=== PATIENT | male | born 1990 | race Caucasian/White ===

== ENCOUNTER 2025-05-31 19:50 | Emergency (ER) | payer MEDICAID, SELFPAY ==
[2025-05-31] VITALS (20 sets, daily range): BP systolic 138–174; BP diastolic 72–94; PULSE 102–113; TEMP 36.8–38.6; O2SAT 94–100; BMI 40.4
--- NOTE | 2025-05-31 20:35 | XR_ITS ---
The [address] [address] Patient Name: SPEEDY REYNOSO MRN: [id number] date: 1990 Sex: M Assigned Patient Location: ED.MAIN Current Patient Location: Accession/Order Number: [id number] Exam Date: 05/31/2025 21:00 Report Date: 06/01/2025 09:43 At the request of: NICOLASA LUIS Procedure: XR chest 2V PA AND LATERAL CHEST: CLINICAL HISTORY: cough, shortness of breath, fever and chills COMPARISON: 06/02/2006 Minimal linear scarring or atelectasis is seen at the left base. There is no focal parenchymal consolidation, effusion or pneumothorax. The cardiac, hilar and mediastinal silhouettes are within normal limits. There is no vascular congestion. The visualized bony thorax is intact. There is minor endplate spurring. XR/XR chest 2V IMPRESSION: NO ACUTE CARDIOPULMONARY ABNORMALITY. Impression dictated by: Judith Salas M.D. 06/01/2025 9:43 AM Dictation Location: [place] [address] Electronically authenticated by: [id number] Y Date: 06/01/2025 09:43
[2025-05-31 20:50] LABS: Glucose Urine UA NEGATIVE (NEGATIVE)
[2025-05-31 20:55] LABS: SARS-CoV-2 Ag NEGATIVE (NEGATIVE)
[2025-05-31 20:57] LABS: Cast Seen? NONE SEEN #/LPF (NONE SEEN); Crystals Seen? None Seen #/HPF (None Seen)
[2025-05-31 20:58] LABS: Urine Culture Indicated YES-FRMC
[2025-05-31] MEDS: ACETAMINOPHEN 500 MG TABLET 1000 MG PO (21:20)
[2025-05-31] MEDS: IBUPROFEN 400 MG TABLET 800 MG PO (21:20)
--- NOTE | 2025-05-31 21:20 | ED.GENADUL1 ---
Documented by User: MERI Bartlett 05/31/25 22:09 HPI HPI - General Adult General Chief complaint: Fever Stated complaint: SOB, FEVER, CHILLS, COUGHING, CHEST HURTS Time Seen by Provider: 05/31/25 20:24 Source: patient Mode of arrival: walk-in Limitations: no limitations History of Present Illness HPI narrative: Patient is a 34-year-old male that presents to the emergency department with 5 days of fever, chills, shortness of breath, cough, nausea, lack of appetite. He denies any abdominal pain or vomiting. Related Data Previous Rx's ?Medication ?Instructions ?Recorded levofloxacin 500 mg tablet 500 mg PO DAILY 3 days #3 tabs 05/31/25 Allergies Allergy/AdvReac Type Severity Reaction Status Date / Time Penicillins Allergy Hives Verified 05/31/25 20:30 Opioid HPI Opioid Management Most Recent Opioid Data: Last Pain Scale 6 Today, 20:24 Last AUG Pain Assessment Today, 21:20 Review of Systems ROS Status of ROS 10 or more systems reviewed and unremarkable except as noted in history and below PFSH PFSH Social History Little interest or pleasure in doing things: not at all Feeling down, depressed, or hopeless: not at all Exam Narrative Exam Narrative: General: No distress, age-appropriate Skin: Warm, dry, no pallor. No rash. Head: Normocephalic, atraumatic. Neck: Supple, non-tender. Eye: Pupils are equal, round and EOMI. No scleral icterus. Ears, Nose, Mouth, and Throat: TMs clear bilaterally. No nasal mucosal hypertrophy. Oral mucosa is moist, no posterior oropharynx erythema, uvula is mid-line Cardiovascular: Regular Rate and Rhythm without murmur, gallop or rub. Respiratory: No accessory muscle use or respiratory distress. Lungs are clear to auscultation, no wheezing, rales or rhonchi Chest Wall: no tenderness Musculoskeletal: Full ROM of all extremities, no calf or popliteal tenderness GI: Abdomen is soft, obese, non-distended, non tender to palpation. No masses appreciated. No rebound, guarding, or rigidity noted. Neurological: A&O x4. No cranial nerve dysfunction observed. No truncal ataxia. Moves all extremities. Sensation intact. Psychiatric: Cooperative and interactive. Normal mood and affect. Constitutional Vital Signs, click to edit/add: Last Vital Signs Temp 101.5 F H 05/31/25 22:35 Pulse 113 H 05/31/25 20:24 Resp 18 05/31/25 20:24 BP 174/81 H 05/31/25 20:24 Pulse Ox 100 05/31/25 20:24 O2 Del Method Room Air 05/31/25 20:24 Documenting provider has reviewed patient's vital signs: yes Course Vital Signs Vital signs: Vital Signs Temperature 101.1 F H 05/31/25 20:24 Pulse Rate 113 H 05/31/25 20:24 Respiratory Rate 18 05/31/25 20:24 Blood Pressure 174/81 H 05/31/25 20:24 Pulse Oximetry 100 05/31/25 20:24 Oxygen Delivery Method Room Air 05/31/25 20:24 Temperature 101.5 F H 05/31/25 22:35 Pulse Rate 113 H 05/31/25 20:24 Respiratory Rate 18 05/31/25 20:24 Blood Pressure 174/81 H 05/31/25 20:24 Pulse Oximetry 100 05/31/25 20:24 Oxygen Delivery Method Room Air 05/31/25 20:24 Medical Decision Making [facility] Narrative Medical decision making narrative: The patient is a 34-year-old male presenting with a 5-day history of fever, chills, cough, shortness of breath, nausea, lack of appetite, and urinary frequency. On arrival patient is febrile at 101.1, tachycardic at 113,and elevated blood pressure (174/81). He is in no respiratory distress, nontoxic-appearing, and 100% O2 saturation on room air. Chest x-ray, influenza/COVID swabs, CBC, BMP, lactate ordered. Radiological read not available, 2 view chest x-ray AP/lateral reviewed and interpreted by myself as negative for opacities, consolidation, pneumothorax, or effusion. Negative influenza/COVID. His urinalysis showed proteinuria, hematuria, elevated WBCs, and leukocyte esterase. Given the clinical presentation, a broad-spectrum approach was initiated. Tylenol and ibuprofen also administered for fever. Levofloxacin (Levaquin) was started empirically for suspected pyelonephritis or UTI with potential renal involvement. IV fluids (1 liter of normal saline) was administered. At this time, 2200, my shift has ended and patient case and care signed out to Dr Hay, disposition pending resulting labs but I anticipate discharge with close PCP follow up. Differential Diagnosis Differential Diagnosis: Influenza, COVID, UTI, PNA, Viral URI Lab Data Lab results reviewed: Yes I reviewed the patient's lab results Labs: Lab Results 05/31/25 05/31/25 05/31/25 Range/Units 20:34 20:37 21:34 WBC 10.9 (4.0-11.0) 10^3/uL RBC 5.18 (4.70-6.10) 10^6/uL Hgb 15.5 (14.0-18.0) g/dL Hct 44.7 (42.0-54.0) % MCV 86.3 (80.0-94.0) fL MCH 29.9 (25.9-34.0) pg MCHC 34.7 (29.9-35.2) g/dL RDW 12.8 (11.0-15.0) % Plt Count 247 (150-450) 10^3/uL MPV 9.3 L (9.5-13.5) fL Seg Neuts % (Manual) 70.0 (43.0-75.0) Lymphocytes % (Manual) 15.0 L (20.5-60.0) % Monocytes % (Manual) 15.0 H (1.7-12.0) % Eosinophils % (Manual) 0.0 L (0.9-7.0) % Basophils % (Manual) 0.0 L (0.2-2.0) % Neutrophils # (Manual) 7.63 H (1.4-6.5) 10^3/uL Lymphocytes # (Manual) 1.63 (1.20-3.80) 10^3/uL Monocytes # (Manual) 1.63 H (0.30-0.80) 10^3/uL Eosinophils # (Manual) 0.00 (0.00-0.70) 10^3/uL Basophils # (Manual) 0.00 (0.00-0.10) 10^3/uL Sodium 137 (136-145) mmol/L Potassium 3.6 (3.5-5.1) mmol/L Chloride 101 (98-107) mmol/L Carbon Dioxide 27.0 (21.0-32.0) mmol/L Anion Gap 12.6 BUN 15.0 (7.0-18.0) mg/dL Creatinine 1.24 (0.70-1.30) mg/dL Est GFR ( Amer) >60 (>=60 mL/min/1.73m^2) Est GFR (Non-Af Amer) >60 (>=60 mL/min/1.73m^2) BUN/Creatinine Ratio 12.1 Glucose 108 H (74-106) mg/dL Calcium 9.5 (8.5-10.1) mg/dL Urine Color Lt. yellow (YELLOW) Urine Clarity Clear (CLEAR) Urine pH 7.0 (5.0-9.0) Ur Specific Frederic 1.015 (1.005-1.025) Urine Protein 30 A (NEG/TRACE) mg/dL Urine Glucose (UA) Negative (NEGATIVE) mg/dL Urine Ketones Negative (NEGATIVE) mg/dL Urine Occult Blood Moderate A (NEGATIVE) Urine Nitrite Negative (NEGATIVE) Urine Bilirubin Negative (NEGATIVE) Urine Urobilinogen 4.0 A (0.2-1.0) EU/dL Ur Leukocyte Esterase Small A (NEGATIVE) Urine RBC 10-20 A (0-2) #/HPF Urine WBC 10-20 A (NONE SEEN) #/HPF Ur Squamous Epith Cells Few A (NONE/RARE) #/LPF Urine Crystals None seen (None Seen) #/HPF Urine Bacteria Trace A (NONE SEEN) #/HPF Urine Casts None seen (NONE SEEN) #/LPF Urine Mucus Moderate A (NONE SEEN) Urine Sperm Seen Ur Culture Indicated? Yes-[facility] [place] Influenza Type A Ag Negative Influenza Type B Ag Negative SARS-CoV-2 Ag (CV2AG) Negative (NEGATIVE) Imaging Data Chest x-ray: Attestation: I personally reviewed and interpreted this imaging study as follows: My impression: 2 view chest x-ray AP/lateral reviewed and interpreted by myself as negative for opacities, consolidation, effusion, or pneumothorax. Discharge Plan Discharge Chief Complaint: Fever Clinical Impression: Upper respiratory disease, Acute UTI Patient Disposition: Home, Self-Care Time of Disposition Decision: 22:35 Prescriptions / Home Meds: New levofloxacin 500 mg tablet 500 mg PO DAILY 3 Days Qty: 3 0RF Print Language: Greek Instructions: Urinary Tract Infection in Men (ED), Upper Respiratory Infection (ED) Referrals: Tato Sadler MD [Primary Care Provider, Family Practice] - 1 week Documented by User: Néstor Jason 05/31/25 23:06 HPI HPI - General Adult General Chief complaint: Fever Stated complaint: SOB, FEVER, CHILLS, COUGHING, CHEST HURTS Time Seen by Provider: 05/31/25 20:24 Related Data Previous Rx's ?Medication ?Instructions ?Recorded levofloxacin 500 mg tablet 500 mg PO DAILY 3 days #3 tabs 05/31/25 Allergies Allergy/AdvReac Type Severity Reaction Status Date / Time Penicillins Allergy Hives Verified 05/31/25 20:30 Opioid HPI Opioid Management Most Recent Opioid Data: Last Pain Scale 6 Today, 20:24 Last MAR Pain Assessment Today, 21:20 PFSH PFSH Social History Little interest or pleasure in doing things: not at all Feeling down, depressed, or hopeless: not at all Exam Constitutional Vital Signs, click to edit/add: Last Vital Signs Temp 101.5 F H 05/31/25 22:35 Pulse 113 H 05/31/25 20:24 Resp 18 05/31/25 20:24 BP 174/81 H 05/31/25 20:24 Pulse Ox 100 05/31/25 20:24 O2 Del Method Room Air 05/31/25 20:24 Course Vital Signs Vital signs: Vital Signs Temperature 101.1 F H 05/31/25 20:24 Pulse Rate 113 H 05/31/25 20:24 Respiratory Rate 18 05/31/25 20:24 Blood Pressure 174/81 H 05/31/25 20:24 Pulse Oximetry 100 05/31/25 20:24 Oxygen Delivery Method Room Air 05/31/25 20:24 Temperature 101.5 F H 05/31/25 22:35 Pulse Rate 113 H 05/31/25 20:24 Respiratory Rate 18 05/31/25 20:24 Blood Pressure 174/81 H 05/31/25 20:24 Pulse Oximetry 100 05/31/25 20:24 Oxygen Delivery Method Room Air 05/31/25 20:24 Medical Decision Making [facility] Narrative Medical decision making narrative: The patient is a 34-year-old male presenting with a 5-day history of fever, chills, cough, shortness of breath, nausea, lack of appetite, and urinary frequency. On arrival patient is febrile at 101.1, tachycardic at 113,and elevated blood pressure (174/81). He is in no respiratory distress, nontoxic-appearing, and 100% O2 saturation on room air. Chest x-ray, influenza/COVID swabs, CBC, BMP, lactate ordered. Radiological read not available, 2 view chest x-ray AP/lateral reviewed and interpreted by myself as negative for opacities, consolidation, pneumothorax, or effusion. Negative influenza/COVID. His urinalysis showed proteinuria, hematuria, elevated WBCs, and leukocyte esterase. Given the clinical presentation, a broad-spectrum approach was initiated. Tylenol and ibuprofen also administered for fever. Levofloxacin (Levaquin) was started empirically for suspected pyelonephritis or UTI with potential renal involvement. IV fluids (1 liter of normal saline) was administered. At this time, 2200, my shift has ended and patient case and care signed out to Dr Jason, disposition pending resulting labs but I anticipate discharge with close PCP follow up. Attending physician note -I met with the patient and examined him. He has no costovertebral angle tenderness or abdominal tenderness at this time. White blood cell count is normal at 10.9 and CBC is otherwise unremarkable. Metabolic profile shows normal electrolytes and renal function. Glucose slightly elevated at 108. Swabs for influenza and COVID were negative. Urinalysis shows acute urinary tract infection with leukocyte esterase, bacteria and elevated white blood cells -I ordered the patient to receive IV Levaquin and normal saline IV fluid bolus. The patient was informed of results and he will be prescribed Levaquin to take on outpatient basis for continued treatment of his UTI. I encouraged him to increase his fluid intake and make sure that he is eating in order to maintain proper nutrition for healing. ED return if he worsens. Otherwise he can see his primary care physician for follow-up as needed. - Delta DO Lab Data Labs: Lab Results 05/31/25 05/31/25 05/31/25 Range/Units 20:34 20:37 21:34 WBC 10.9 (4.0-11.0) 10^3/uL RBC 5.18 (4.70-6.10) 10^6/uL Hgb 15.5 (14.0-18.0) g/dL Hct 44.7 (42.0-54.0) % MCV 86.3 (80.0-94.0) fL MCH 29.9 (25.9-34.0) pg MCHC 34.7 (29.9-35.2) g/dL RDW 12.8 (11.0-15.0) % Plt Count 247 (150-450) 10^3/uL MPV 9.3 L (9.5-13.5) fL Seg Neuts % (Manual) 70.0 (43.0-75.0) Lymphocytes % (Manual) 15.0 L (20.5-60.0) % Monocytes % (Manual) 15.0 H (1.7-12.0) % Eosinophils % (Manual) 0.0 L (0.9-7.0) % Basophils % (Manual) 0.0 L (0.2-2.0) % Neutrophils # (Manual) 7.63 H (1.4-6.5) 10^3/uL Lymphocytes # (Manual) 1.63 (1.20-3.80) 10^3/uL Monocytes # (Manual) 1.63 H (0.30-0.80) 10^3/uL Eosinophils # (Manual) 0.00 (0.00-0.70) 10^3/uL Basophils # (Manual) 0.00 (0.00-0.10) 10^3/uL Sodium 137 (136-145) mmol/L Potassium 3.6 (3.5-5.1) mmol/L Chloride 101 (98-107) mmol/L Carbon Dioxide 27.0 (21.0-32.0) mmol/L Anion Gap 12.6 BUN 15.0 (7.0-18.0) mg/dL Creatinine 1.24 (0.70-1.30) mg/dL Est GFR ( Amer) >60 (>=60 mL/min/1.73m^2) Est GFR (Non-Af Amer) >60 (>=60 mL/min/1.73m^2) BUN/Creatinine Ratio 12.1 Glucose 108 H (74-106) mg/dL Calcium 9.5 (8.5-10.1) mg/dL Urine Color Lt. yellow (YELLOW) Urine Clarity Clear (CLEAR) Urine pH 7.0 (5.0-9.0) Ur Specific Frederic 1.015 (1.005-1.025) Urine Protein 30 A (NEG/TRACE) mg/dL Urine Glucose (UA) Negative (NEGATIVE) mg/dL Urine Ketones Negative (NEGATIVE) mg/dL Urine Occult Blood Moderate A (NEGATIVE) Urine Nitrite Negative (NEGATIVE) Urine Bilirubin Negative (NEGATIVE) Urine Urobilinogen 4.0 A (0.2-1.0) EU/dL Ur Leukocyte Esterase Small A (NEGATIVE) Urine RBC 10-20 A (0-2) #/HPF Urine WBC 10-20 A (NONE SEEN) #/HPF Ur Squamous Epith Cells Few A (NONE/RARE) #/LPF Urine Crystals None seen (None Seen) #/HPF Urine Bacteria Trace A (NONE SEEN) #/HPF Urine Casts None seen (NONE SEEN) #/LPF Urine Mucus Moderate A (NONE SEEN) Urine Sperm Seen Ur Culture Indicated? [place] [place] Influenza Type A Ag Negative Influenza Type B Ag Negative SARS-CoV-2 Ag (CV2AG) Negative (NEGATIVE) Discharge Plan Discharge Chief Complaint: Fever Clinical Impression: Upper respiratory disease, Acute UTI Patient Disposition: Home, Self-Care Time of Disposition Decision: 22:35 Prescriptions / Home Meds: New levofloxacin 500 mg tablet 500 mg PO DAILY 3 Days Qty: 3 0RF Print Language: Greek Instructions: Urinary Tract Infection in Men (ED), Upper Respiratory Infection (ED) Referrals: Tato Sadler MD [Primary Care Provider, [facility]] - 1 week
[2025-05-31 21:47] LABS: Hematocrit 44.7 % (42.0-54.0); Hemoglobin 15.5 g/dL (14.0-18.0); Mean Corpuscular HGB Conc 34.7 g/dL (29.9-35.2); Mean Corpuscular Hemoglobin 29.9 pg (25.9-34.0); Mean Corpuscular Volume 86.3 fL (80.0-94.0); Platelet Count 247 10^3/uL (150-450); Red Blood Count 5.18 10^6/uL (4.70-6.10); White Blood Count 10.9 10^3/uL (4.0-11.0)
[2025-05-31 21:51] LABS: Anion Gap 12.6; Blood Urea Nitrogen 15.0 mg/dL (7.0-18.0); Calcium 9.5 mg/dL (8.5-10.1); Carbon Dioxide 27.0 mmol/L (21.0-32.0); Chloride 101 mmol/L (98-107); Estimated GFR (African America >60 (>=60 mL/min/1.73m^2); Estimated GFR (Non-African Ame >60 (>=60 mL/min/1.73m^2); Glucose 108 mg/dL (74-106); Potassium 3.6 mmol/L (3.5-5.1); Sodium 137 mmol/L (136-145)
--- OUTSIDE RECORDS SUMMARY | 2025-05-31 22:00 | XMS_ITS | Patient Health Record ---
Author Organization [facility] [place] Address [address] [place] [address] Care Team Providers Care Pairer Name Role Phone Srinivasan Sadler Primary Care Provider Allergies Allergen (clinical drug ingredient) Drug/Non Drug Allergy documented on EMR Reaction Allergy Type Onset Date Status PenicillinhivesDrug AllergyActive Reason For Referral No Information Medications Medication SIG (Take, Route, Frequency, Duration) Notes Start Date End Date Status Bactrim DS 800-160 MG 1 tablet Orally Twice a da y; Duration: 10 4Active Social History Tobacco Use: Social History Observation Description Date Details (start date - stop date) Never Smoker NA - NA Tobacco Control (Standard) Question Answer Notes Tobacco use: Nonsmoker AUDIT-C (Standard) Question Answer Notes Did you have a drink containing alcohol in the p ast year? No Tjqfcw0WphkusihwcsshfLsjcvmgr Problems Problem Type SNOMED Code ICD Code Onset Dates Problem Status W/U Status Risk Notes Problem Snoring (49148869) Snoring (R06.83) ActiveconfirmedProblemGastroesophageal reflux disease (239248940)GERD (gastroesophageal reflux disease) (K21.9)ActiveconfirmedProblemAttention deficit hyperactivity disorder (973063000)ADHD (attention deficit hyperactivity disorder) (F90.9)Activeconfirmed Plan Of Treatment No Information Insurance Providers Payer Name Payer Address Payer Phone Subscriber Number Group Number Insured Name Patient Relationship to Insured Coverage Start Date Coverage End Date [employer] [place] [employer] [address] [address] [place] [address] [id number] Fermin Medina - patient is the [id number] 2022 Medical (General) History Medical History History ICD Code ADHD (attention deficit hyperactivity di sorder) F90.9 Snoring R06.83 GERD (gastroesophageal reflux disease) K 21.9 Chest pain R07.9 Depression F32.A Surgical History Surgery Date(Month/Year) Tonsillectomy 08/21
--- OUTSIDE RECORDS SUMMARY | 2025-05-31 22:00 | XMS_ITS | Clinical Summary ---
Author Organization [employer] [facility] Address [id number] [place] [address] Care Team Providers Care Shop Superintendent Name Role Phone Tato Sadler MD Primary Care Provider [phone] Allergies Active AllergyReactionsCriticalityNoted ZpnoDwjtweluEkdbllkleuu63/29/2018 Medications MedicationSigDispense QuantityRefillsLast FilledStart DateEnd DateStatus azithromycin (ZITHROMAX) 250 mg tablet Take 2 tablets the first day, then 1 tablet daily for 4 days. 6 tablet 07/03/2019Active Additional Information Patient not taking.Reported on 04/27/2024 cyclobenzaprine (FLEXERIL) 10 mg tablet Take 1 tablet (10 mg total) by mouth 2 (two) times a day as needed for muscle spasms. 10 tablet 04/27/2024ctive lidocaine (LIDODERM) 5 % Place 1 patch on the skin daily. Remove & Discard patch within 12 hours or as directed by MD 30 patch 04/27/2024ctive ibuprofen (MOTRIN) 800 mg tablet Take 1 tablet (800 mg total) by mouth 3 (three) times a day. 21 tablet 04/27/2024ctive acetaminophen (TYLENOL EXTRA STRENGTH) 500 mg tablet Take 1 tablet (500 mg total) by mouth every 6 (six) hours as needed for pain. 30 tablet 04/27/2024ctive Social History Tobacco UseTypesPacks/DayYears UsedDateSmoking Tobacco: NeverSmokeless Tobacco: NeverAlcohol UseStandard Drinks/WeekCommentsYes0 (1 standard drink = 0.6 oz pure alcohol)SOCIALLYChildcareAnswerDate JkljtqpoXroojnbnqYuixlir42/12/2019Employment AnswerDate LslyvporQwvlduaazzFcaqciz42/12/2019Hunger ScreeningAnswerDate RecordedWithin the past 12 months we worried whether our food would run out before we got money to buy more.Never True04/27/2024Within the past 12 months the food we bought just didn't last and we didn't have money to get more.Never True04/27/2024urpose - LifeAnswerDate RecordedPurpose and direction in life Qxwjcvh1107/15/2020ex and Gender InformationValueDate RecordedSex Assigned at BirthNot on fileLegal CdvVrrb8801/07/2015 11:42 AM EDTGender IdentityNot on file Sexual OrientationNot on file Last Filed Vital Signs Vital SignReadingTime TakenCommentsBlood Npmsurcb537/80106/27/2023 2:40 PM EST Bgymr66493/24/2024 2:40 PM QZRUkuwqirriim72.8 ??C (98.2 ??F)04/27/2024 2:40 PM ESTRespiratory Aevu7355 2:40 PM ESTOxygen Egimrhyxtx34%04/27/2024 2:40 PM ESTInhaled Oxygen Concentration--Dkhsyw267.1 kg (245 lb)04/27/2024 2:40 PM MGUOygxre303.6 cm (5' 6 )04/27/2024 2:40 PM ESTBody Mass Index39.5404/27/2024 2:40 PM EST Plan of Treatment Health MaintenanceDue DateLast DoneCommentsDTaP,Tdap and Td Vaccines (5 - Tdap) , 07/15/1990, 05/06/1990, Additional history exists Depression Jcyvkbyyw49/04/2002COVID-19 Vaccine ( - season)2025 04/22/2023, 05/30/2021, 11/17/2020, Additional history existsInfluenza Vaccine /10/2006, 04/25/2006, 04/05/2005, Additional history existsAdult BMI Mnhqdichk55Tobacco Owedflvcv91 Medical Devices Not on file Insurance Care Teams Team MemberRelationshipSpecialtyStart DateEnd Date Tato aSdler MD PCP - Bgvvdzq23/24/24
[2025-05-31 22:05] LABS: Basophils Abs Manual 0.00 10^3/uL (0.00-0.10); Basophils Percent Manual 0.0 % (0.2-2.0); Eosinophils Absolute Manual 0.00 10^3/uL (0.00-0.70); Eosinophils Percent Manual 0.0 % (0.9-7.0); Lymphocytes Absolute Manual 1.63 10^3/uL (1.20-3.80); Lymphocytes Percent Manual 15.0 % (20.5-60.0); Monocytes Absolute Manual 1.63 10^3/uL (0.30-0.80); Monocytes Percent Manual 15.0 % (1.7-12.0); Segmented Neut Absolute Manual 7.63 10^3/uL (1.4-6.5); Segmented Neutrophils % Manual 70.0 (43.0-75.0)
[2025-05-31] MEDS: 0.9 % SODIUM CHLORIDE 1,000 ML 1000 ML IV (22:36)
[2025-05-31] MEDS: LEVOFLOXACIN IN DEXTROSE 5 % 750 MG/150 ML PREMIX 100 MG IV (22:36)
[2025-06-01] VITALS: BP 149/80; PULSE 97; O2SAT 96
--- NOTE | 2025-06-01 00:15 | PC.NURSE ---
i gave this patient verbal and written discharge orders along with 1 e-script and this patient voices yes to understanding these. at time of discharge this patient voices no concerns, needs and shows no signs of distress
== END 2025-06-01 00:14 | disposition home or self-care (01) ==
PROVIDERS: Physician Assistant; Emergency Provider Emergency Medicine; PCP Family Medicine
DX: N39.0 Urinary tract infection, site not specified (principal); J06.9 Acute upper respiratory infection, unspecified; R50.9 Fever, unspecified
CPT/HCPCS: 36415; 71046; 80048; 81001; 83605; 85007; 85027; 87086; 87088; 87186; 87804; 87811; 96374; 99284; 99285